=== PATIENT | male | born 1960 | race Caucasian/White ===

== ENCOUNTER 2023-09-24 12:19 | Emergency (ER) | payer OTHER ==
[~2023-09-24] VITALS: Ht 182.9 cm; Wt 68.0 kg
[2023-09-24 12:44] VITALS: BP 136/68; PULSE 66; RESP 16; O2SAT 95
== END 2023-09-24 18:10 | disposition left against medical advice (07) ==
LOC: ER 12:19
DX: M54.50 Low back pain, unspecified (principal); R21 Rash and other nonspecific skin eruption; R05.9 Cough, unspecified; Z53.21 Procedure and treatment not carried out due to patient leaving prior to being seen by health care provider
CPT/HCPCS: 93005

== ENCOUNTER 2024-01-09 17:55 | Emergency (ER) | payer SELFPAY ==
[~2024-01-09] VITALS: Ht 182.9 cm; Wt 70.0 kg
[2024-01-09 19:58] VITALS: BP 107/58; PULSE 92; RESP 20; TEMP 98.2; O2SAT 96
[2024-01-09] MEDS ORDERED: NAP500T PO (20:29)
[2024-01-09] MEDS: HYDROcodone-ACET 5/325MG TAB PO ONE (20:45)
[2024-01-09] MEDS: ONDANSETRON ODT 4 MG TAB PO ONE (20:45)
== END 2024-01-09 20:54 | disposition home or self-care (01) ==
LOC: ER 17:55
DX: S93.692A Other sprain of left foot, initial encounter (principal); Z79.899 Other long term (current) drug therapy; W11.XXXA Fall on and from ladder, initial encounter; Y93.89 Activity, other specified; Y92.89 Other specified places as the place of occurrence of the external cause; Y99.8 Other external cause status
CPT/HCPCS: 73630; 99283; Q0162